=== PATIENT | female | born 1955 | race Caucasian/White ===

== ENCOUNTER → 2016-03-31 | Outpatient (CLI) | payer BC ==
[2016-03-31 08:54] LABS: Basophils # (A) 0.1 k/uL (0-0.2); Basophils % (A) 1 %; CH 31.3; CHCM 32.5; Eosinophils # (A) 0.2 k/uL (0-0.7); Eosinophils % (A) 4 %; HCT 41.2 % (34.0-46.0); HDW 2.22; HGB 13.4 gm/dL (11.4-16.0); Luc # (Auto) 0.18; Luc % (Auto) 4; Lymphocytes # (A) 1.1 k/uL (1.0-4.8); Lymphocytes % (A) 24 %; MCH 31.5 pg (25.0-35.0); MCHC 32.5 g/dL (31.0-37.0); MCV 96.7 fL (80.0-100.0); Mean Platelet Volume 7.6; Monocytes # (A) 0.4 k/uL (0-1.0); Monocytes % (A) 9 %; Neutrophils # (A) 2.7 k/uL (1.3-7.7); Neutrophils % (A) 59 %; RBC 4.26 m/uL (3.80-5.40); RDW 12.4 % (11.5-15.5); WBC 4.5 k/uL (3.8-10.6); WBC (Perox) 4.65
[2016-03-31 08:56] LABS: Anion Gap 8 mmol/L; Blood Urea Nitrogen 13 mg/dL (7-17); Carbon Dioxide 31 mmol/L (22-30); Chloride 103 mmol/L (98-107); Glucose 100 mg/dL (74-99); Non-African American GFR(MDRD) >60 (>60 ml/min/1.73 sqM); Potassium 4.4 mmol/L (3.5-5.1); Sodium 142 mmol/L (137-145)
== END | disposition home or self-care (01) ==
LOC: LABPAT 08:04
PROVIDERS: ATTEND Obstetrics & Gynecology
DX: Z01.812 Encounter for preprocedural laboratory examination (principal); N81.2 Incomplete uterovaginal prolapse
CPT/HCPCS: 80051; 82565; 82947; 84520; 85025; 86850; 86900; 86901; 87086

== ENCOUNTER 2016-04-05 06:01 | Day surgery (SDC) | payer BC ==
[2016-04-01 16:29] VITALS: BMI 25.2
--- NOTE | 2016-04-04 19:43 | HP ---
DATE OF ADMISSION: HISTORY: This is a 60-year-old 3, para 2 woman with symptomatic pelvic prolapse. She has a second-degree cervical uterine prolapse and cystocele as well as rectocele. She denies definitive surgical management. She does not have incontinence or pelvic pain. ALLERGIES: None. MEDICATIONS: 1. Atenolol 50 mg daily. 2. Lisinopril 2.5 mg daily. 3. Simvastatin 40 mg daily. 4. Calcium supplement daily. PAST MEDICAL HISTORY: Osteoporosis, hyperlipidemia, hypercholesterolemia, history of basal cell carcinoma and QT prolongation. Past [employer] history: She is a 3, para 2-0-1-2 with a history of 3 vaginal deliveries with 2 living children. She has no history of abnormal Pap smears or STDs. PAST SURGICAL HISTORY: Resection of basal cell carcinoma, bunionectomy, colonoscopy and tonsillectomy. SOCIAL HISTORY: She is . Negative for tobacco, alcohol and drug use. FAMILY HISTORY: Significant for sister with uterine cancer, mother with Hodgkin's lymphoma and hypertension and multiple members with long QT syndrome. REVIEW OF SYSTEMS: Positive for pelvic prolapse. Negative for a vaginal bleeding, incontinence, fecal incontinence, abdominal pain, postmenopausal bleeding, or other symptoms. PHYSICAL EXAMINATION: Blood pressure 100/70, pulse 64. Weight 136 pounds. Height 5 feet 1 inch. In general, this is a pleasant female in no apparent distress. HEENT exam is unremarkable with no palpable lymphadenopathy or thyromegaly. Cardiovascular exam, negative for any abnormal findings. The lungs are clear to auscultation bilaterally and the heart is a regular rate and rhythm. The abdomen is slim, soft and nontender with no rebound, no guarding, and no flank pain. On pelvic examination, she has normal female external genitalia without lesions or irritation. She has mild atrophic changes noted. With Valsalva she has second degree cervical uterine prolapse, second degree cystocele and first degree rectocele. On bimanual examination, the uterus is small, freely mobile and in the midline with no adnexal masses palpable. ASSESSMENT: This is a 60-year-old 3, para 2 woman with symptomatic pelvic prolapse. She desires definitive surgical management. She is scheduled to undergo a total vaginal hysterectomy with anterior colporrhaphy and possible posterior colporrhaphy based on intraoperative findings. This procedure, risks, benefits, and alternatives have been reviewed with the patient in detail. Risks include but are not limited to bleeding, transfusion, infection, laparotomy, damage to bowel, bladder, ureters and/or other pelvic and intra-abdominal structures. She understands risks associated with anesthesia. She had the opportunity to have all of her questions answered, and consent has been obtained. She is scheduled for total vaginal hysterectomy, anterior colporrhaphy, and possible posterior colporrhaphy on 04/05/2016.
[~2016-04-05 06:01] MED LIST: DEXAMETHASONE SOD PHOSPHATE 10 MG/ML 1 ML VIAL IV ONE; HYDROmorphone 1 MG/ML 1 ML SYRINGE IVP PRN; LACTATED RINGERS 1,000 ML IV SCH; MIDAZOLAM 2 MG/2 ML VIAL IV PRN; ONDANSETRON 4 MG/2 ML VIAL IVP ONE; SCOPOLAMINE 1.5MG/72HR PATCH TRANSDERM ONE; ceFAZolin 2 GM in SODIUM CHLORIDE 0.9% 100 ML IVPB ONE
[2016-04-05 06:24] VITALS: RESP 16
[2016-04-05] MEDS ORDERED: LIDOCAINE 1% 20 ML VIAL (10MG/ML) FOR IV START SQ ONE (06:25)
[2016-04-05] MEDS ORDERED: PROPOFOL 10 MG/ML 20 ML VIAL IV ONE (07:34)
[2016-04-05] MEDS ORDERED: MIDAZOLAM 2 MG/2 ML VIAL ONE (07:34)
[2016-04-05] MEDS ORDERED: fentaNYL (PF) 50 MCG/ML 2 ML AMP ONE (07:34)
[2016-04-05] MEDS ORDERED: MORPHINE SULFATE (PF) 0.3 MG/0.3 ML SYR ONE (07:34)
[2016-04-05] MEDS ORDERED: VASOPRESSIN 20 UNIT/ML 1 ML VIAL SQ ONE (08:05)
[2016-04-05] MEDS ORDERED: BACITRACIN 500 UNIT/GM OINT 28.4 GM TUBE TOPICAL ONE (08:05)
[2016-04-05] MEDS ORDERED: LACTATED RINGERS 1,000 ML IV ONE (08:33)
--- NOTE | 2016-04-05 08:38 | P.OP ---
Date of Procedure: 04/05/16 Preoperative Diagnosis: Second-degree cystocele and uterine prolapse, first-degree rectocele Postoperative Diagnosis: Same Procedure(s) Performed: Total vaginal hysterectomy and anterior colporrhaphy Anesthesia: spinal Surgeon: Virginia Lai Bond Analyst #1: Karlee Craven Estimated Blood Loss (ml): 25 IV fluids (ml): 150 Urine output (ml): 1,000 Pathology: other (Cervix and uterus) Condition: stable Disposition: PACU Indications for Procedure: Systematic pelvic prolapse Operative Findings: Third-degree cystocele, second-degree cervical uterine prolapse, first-degree rectocele Description of Procedure: After the patient and her were met in the preoperative holding area and all questions were answered, she was taken to the operating room where spinal anesthetic was administered without incident. She was then positioned, prepped and draped in the dorsal high lithotomy position. The bladder was drained for approximately 150 mL of clear urine. Weighted speculum was placed in the vagina. Cervix was grasped anteriorly with a single-tooth tenaculum. The vaginal Koza was infused with dilute vasopressin solution. A circumferential incision was made about the cervix. The anterior and posterior vaginal mucosa were bluntly away from the underlying cervical tissue. The posterior peritoneum was placed on countertraction and entered sharply. The posterior peritoneum was tagged with a 2-0 Vicryl suture. Weighted speculum was removed and a long weighted speculum was replaced. The bladder was advanced anteriorly bluntly. The uterosacral ligaments were clamped cut and suture ligated bilaterally. 2-0 Vicryl suture was utilized throughout muscle otherwise noted. The uterine vasculature was then clamped cut and suture ligated bilaterally. The posterior fundus of the uterus was then delivered in the anterior peritoneum was visualized and entered sharply. The uterine cornua were then clamped and cut and the specimen was removed. The uterus was quite small. The cornual pedicles were then doubly suture ligated. The right ovary was positively identified and was small and normal. The left ovary was nonvisualized however no gross adnexal abnormalities were appreciated. Both cornual pedicles were inspected and noted to be hemostatic. The long weighted speculum was removed and the short weighted speculum was replaced. The peritoneum was then closed in a pursestring fashion. The uterosacral ligaments were then reapproximated in the midline incorporating the vaginal mucosa as well. The remainder of the vaginal mucosa was then closed in an interrupted fashion save for the anterior portion. Anterior pair was then initiated. The anterior vaginal mucosa was delineated with Allis clamps and infused with dilute vasopressin solution. Metzenbaum scissors were utilized to undermine The anterior vaginal mucosa to a level approximately 2 cm below the urethra. The underlying vesicovaginal vaginal tissue was bluntly away from the mucosa to the level of the fascial defect. Adams catheter was placed and clear urine was noted. The fascia was then reapproximated in the midline with interrupted [place] plication stitches of 2-0 Vicryl suture. This effectively reduced the defect. Excess vaginal mucosa was then trimmed and the vaginal Koza was closed in a running locked fashion with 0 Vicryl suture. Attention was then turned to the posterior repair. There is good support at the introitus and a small first-degree rectocele higher up. It is my impression that time repairing this potentially significantly decrease the caliber of the vagina perhaps creating future issues with dyspareunia. As her rectocele is also not symptomatic as the cystocele the decision was made not to repair this time. The vagina was then packed with bacitracin-soaked Kerlix. All counts reported to me as correct by the operating room staff and the patient was awoken from anesthetic without incident and transported to recovery in stable condition.
[2016-04-05] MEDS ORDERED: KETOROLAC 30 MG/ML 1 ML VIAL IVP PRN ×2 (09:13→09:21)
[2016-04-05] MEDS ORDERED: METOCLOPRAMIDE 5 MG/ML 2 ML VIAL IVP PRN (09:13)
[2016-04-05] MEDS ORDERED: ONDANSETRON 4 MG/2 ML VIAL IVP PRN ×2 (09:13→09:21)
[2016-04-05] MEDS ORDERED: SIMETHICONE 80 MG CHEWABLE PO PRN (09:13)
[2016-04-05] MEDS ORDERED: IBUPROFEN 600 MG TAB PO PRN (09:13)
[2016-04-05] MEDS ORDERED: Acetaminophen-Codeine 300-30mg TAB PO PRN ×2 (09:13)
[2016-04-05] MEDS ORDERED: NALBUPHINE 10 MG/ML AMPUL IV PRN (09:21)
[2016-04-05] MEDS ORDERED: NALOXONE 0.4 MG/ML 1 ML VIAL IV PRN (09:21)
[2016-04-05] MEDS ORDERED: diphenhydrAMINE 50 MG/ML 1 ML VIAL IVP PRN (09:21)
[2016-04-05] MEDS ORDERED: MORPHINE SULFATE 4 MG/ML SYRINGE IVP PRN (09:21)
[2016-04-05] MEDS: SENNOSIDES-DOCUSATE SODIUM 1 EACH TAB PO SCH ×2 (10:08→22:46)
[2016-04-05] MEDS: ATENOLOL 50 MG TAB PO SCH (10:45)
[2016-04-05] MEDS: LACTATED RINGERS 1,000 ML IV SCH ×2 (12:57→20:20)
[2016-04-05] MEDS ORDERED: SCOPOLAMINE 1.5MG/72HR PATCH TRANSDERM SCH (13:15)
[2016-04-05] MEDS: LISINOPRIL 2.5 MG TAB PO SCH (20:20)
[2016-04-05] MEDS ORDERED: ATORVASTATIN 20 MG TAB PO SCH (21:00)
[2016-04-06] MEDS: SENNOSIDES-DOCUSATE SODIUM 1 EACH TAB PO SCH (07:45)
[2016-04-06 07:52] VITALS: BP 100/64; PULSE 61; TEMP 98.2
--- NOTE | 2016-04-06 08:17 | P.DS ---
Providers Expected date of discharge: 04/06/16 Attending physician: Virginia Lai Primary care physician: Stated None - Discharge Diagnosis(es) (1) Current Visit: No (2) Cystocele or rectocele with uterine prolapse Current Visit: Yes Status: Acute Hospital Course: This is a 60-year-old woman with symptomatic pelvic prolapse including third- degree cystocele and second-degree cervical uterine prolapse. She was admitted for surgical repair. She was admitted on 04/05/2016 and underwent an uncomplicated total vaginal hysterectomy with anterior colporrhaphy Under Spinal Anesthetic. Please See the Operative Report for Details. Her Postoperative Course Was Unremarkable. On the Evening of Postoperative Day 0 She Did Have an Episode of Vomiting However This Rapidly Resolved. Her Pain Was Well Controlled. By the Morning of Postoperative Day #1 She Was Able to Void Large Amounts Spontaneously with a Adams Catheter Removed. The Vaginal Packing Had Also Been Removed and She Had No Active Vaginal Bleeding. Her Abdominal and Pelvic Exam Were Benign. She Had Slightly Low Blood Pressures and Her Normal Antihypertensive Medications Were Held. She Was Not Tachycardic. She Was Discharged Home on Postoperative Day #1 Pending Results of Routine CBC. Procedures: Total vaginal hysterectomy with anterior colporrhaphy Patient Condition at Discharge: Good Plan - Discharge Summary New Discharge Prescriptions: Acetaminophen-Codeine 300-30mg [Tylenol w/codeine #3] 1 each PO Q4HR PRN #20 tab PRN Reason: Moderate Pain Discharge Medication List Atenolol [Tenormin] 50 mg PO DAILY 10/07/13 [History] Calcium Carbonate [Calcium] 1,800 mg PO DAILY 02/17/16 [History] Lisinopril [Zestril] 2.5 mg PO DAILY 02/17/16 [History] Simvastatin [Zocor] 40 mg PO HS 02/17/16 [History] Acetaminophen-Codeine 300-30mg [Tylenol w/codeine #3] 1 each PO Q4HR PRN #20 tab 04/06/16 [Rx] Ibuprofen [Motrin] 600 mg PO Q6HR PRN #0 tab 04/06/16 [Rx] Follow up Appointment(s)/Referral(s): Virginia Lai MD [STAFF PHYSICIAN] - 2 Weeks Activity/Diet/Wound Care/Special Instructions: Follow-up in the office 2 weeks postoperatively or sooner with any concerning signs or symptoms. Call the office with any heavy vaginal bleeding, foul vaginal discharge, severe abdominal or pelvic pain, unresolved nausea and vomiting, fever greater than 100.5 or redness or swelling of the lower extremities. No heavy lifting greater than 10 pounds. No driving for 2 weeks. Nothing in the vagina, no intercourse for 6 weeks. Discharge Disposition: HOME SELF-CARE
--- NOTE | 2016-04-06 08:34 | P.PN ---
Progress Note - Text Date: 04/06/2016 Time: 709 The patient is status post, vaginal hysterectomy Vital signs stable VAS0-10 Patient has no complaints of pain. The patient incurred some minimal itching yesterday, this itching is now subsiding. Pain meds to be managed by service.
[2016-04-06] MEDS ORDERED: ACETAMINOPHEN TAB 325 MG TAB PO PRN (08:40)
[2016-04-06] MEDS: ATENOLOL 50 MG TAB PO SCH (09:14)
[2016-04-06] MEDS: LISINOPRIL 2.5 MG TAB PO SCH (09:15)
[2016-04-06 10:10] LABS: Basophils % (A) 0 %; CH 31.3; CHCM 32.8; Eosinophils % (A) 0 %; HCT 33.2 % (34.0-46.0); HDW 2.11; HGB 10.9 gm/dL (11.4-16.0); Luc # (Auto) 0.08; Luc % (Auto) 1; Lymphocytes % (A) 13 %; MCH 31.5 pg (25.0-35.0); MCHC 32.9 g/dL (31.0-37.0); MCV 95.7 fL (80.0-100.0); Mean Platelet Volume 7.7; Monocytes # (A) 0.5 k/uL (0-1.0); Monocytes % (A) 6 %; Neutrophils # (A) 6.4 k/uL (1.3-7.7); Neutrophils % (A) 80 %; RBC 3.47 m/uL (3.80-5.40); RDW 12.3 % (11.5-15.5); WBC 8.1 k/uL (3.8-10.6); WBC (Perox) 8.35
== END 2016-04-06 11:25 | disposition home or self-care (01) ==
LOC: OR 06:01 → 4FBP 08:35 → OR 04-06 11:25
PROVIDERS: ATTEND Obstetrics & Gynecology
DX: N81.2 Incomplete uterovaginal prolapse (principal); N80.0 Endometriosis of uterus; D25.9 Leiomyoma of uterus, unspecified; M81.0 Age-related osteoporosis without current pathological fracture; E78.5 Hyperlipidemia, unspecified; E78.00 Pure hypercholesterolemia, unspecified; Z79.899 Other long term (current) drug therapy; Z91.013 Allergy to seafood
CPT/HCPCS: 85025; 88307; 58260; 57240; J1100; J2405; J0694; 86850; 86900; 86901

== ENCOUNTER → 2018-02-21 | Outpatient (CLI) | payer BC ==
--- NOTE | 2018-02-21 12:05 | BD ---
EXAMINATION TYPE: Axial Bone Density DATE OF EXAM: 02/21/2018 CLINICAL HISTORY: Height: 61.75 Weight: 132 FRAX RISK QUESTIONS: Alcohol (3 or more units per day): no Family History (Parent hip fracture): no Glucocorticoids (More than 3mos): no (Ex: prednisone, prednisolone, methylprednisolone, dexamethasone, and hydrocortisone). History of Fracture in Adulthood: foot Secondary Osteoporosis: 1. Type 1 Diabetes: no 2. Hyperthyroidism: no 3. Menopause before 45: no 4. Malnutrition: no 5. Chronic liver disease: no Rheumatoid Arthritis: no Current Tobacco Use: no RISK FACTORS HISTORY OF: Family History of Osteoporosis: possibly mother Active: yes Diet low in dairy products/other sources of calcium: no Postmenopausal woman: yes Take estrogen and/or progesterone medications: no Lost more than 2 inches in height since high school: no Frequent falls: no Poor Health: no Hyperparathyroidism: no Adrenal Insufficiency: no MEDICATIONS: Prednisone or other steroids: no Thyroid Medications: no Osteoporosis Medications: none now Which medication: Actonel, then Reclast(for 2 years) Additional Medications: calcium , blood pressure meds, cholesterol meds Additional History: osteoarthritis EXAM MEASUREMENTS: Bone mineral densitometry was performed using the [employer] System. Bone mineral density as measured about the Lumbar spine is: ----- L1-L4(G/cm2): 0.903 T Score Values are as follows: ----- L2: -3.0 ----- L3: -2.7 ----- L4: -1.5 ----- L1-L4: -2.3 Bone mineral density has: Decreased -3.5% since study of: 06/24/2005 Bone mineral density about the R hip (g/cm2): 0.707 Bone mineral density about the L hip (g/cm2): 0.703 T Score values are as follows: -----R Neck: -2.4 -----L Neck: -2.4 -----R Total: -2.7 -----L Total: -2.3 Bone mineral density has: Decreased -3.6% since study of: 06/24/2005 IMPRESSION: Osteoporosis (T Score less than -2.5). There is increased fracture risk and therapy is usually indicated based on age. Re-Screen 1-2 years. NOTE: T-SCORE=SD OF THE YOUNG ADULT MEAN.
--- NOTE | 2018-02-22 08:53 | MM ---
Reason for exam: screening (asymptomatic). Last mammogram was performed 1 year ago. History: Patient is postmenopausal. Family history of premenopausal breast cancer in paternal cousin at age 45. Physical Findings: A clinical breast exam by your physician is recommended on an annual basis and results should be correlated with mammographic findings. MG 3D Screening Mammo W/Cad Bilateral CC and MLO view(s) were taken. Prior study comparison: February 17, 2017, bilateral MG 3d screening mammo w/cad. January 06, 2016, bilateral MG 3d screening mammo w/cad. The breast tissue is heterogeneously dense. This may lower the sensitivity of mammography. There is no discrete abnormality. ASSESSMENT: Negative, BI-RAD 1 RECOMMENDATION: Routine screening mammogram of both breasts in 1 year.
== END ==
LOC: RADMAMWWP 08:45
PROVIDERS: ATTEND Family Medicine
DX: Z12.31 Encounter for screening mammogram for malignant neoplasm of breast (principal); M81.0 Age-related osteoporosis without current pathological fracture; Z00.00 Encounter for general adult medical examination without abnormal findings; Z13.820 Encounter for screening for osteoporosis
CPT/HCPCS: 77063; 77067; 77080

== ENCOUNTER → 2019-02-22 | Outpatient (CLI) | payer BC ==
--- NOTE | 2019-02-25 09:27 | MM ---
Reason for exam: screening (asymptomatic). Last mammogram was performed 1 year ago. History: Patient is postmenopausal. Family history of premenopausal breast cancer in paternal cousin at age 45. Physical Findings: A clinical breast exam by your physician is recommended on an annual basis and results should be correlated with mammographic findings. MG 3D Screening Mammo W/Cad Bilateral CC and MLO view(s) were taken. Prior study comparison: February 21, 2018, bilateral MG 3d screening mammo w/cad. February 17, 2017, bilateral MG 3d screening mammo w/cad. The breast tissue is heterogeneously dense. This may lower the sensitivity of mammography. No suspicious abnormality. No significant changes when compared with prior studies. ASSESSMENT: Negative, BI-RAD 1 RECOMMENDATION: Routine screening mammogram of both breasts in 1 year.
== END | disposition home or self-care (01) ==
LOC: RADMAMWWP 07:53
PROVIDERS: ATTEND Nurse Practitioner
DX: Z12.31 Encounter for screening mammogram for malignant neoplasm of breast (principal)
CPT/HCPCS: 77063; 77067